=== PATIENT | female | born 2000 | race Caucasian/White ===

== ENCOUNTER 2018-07-29 22:51 | Emergency (ER) | payer BC ==
[2018-07-29] MEDS ORDERED: diphenhydrAMINE 50 MG/ML SDV IM ONE (23:11)
[2018-07-29] MEDS ORDERED: Ondansetron 4 MG/2 ML SDV IM ONE (23:11)
--- NOTE | 2018-07-29 23:20 | EDM.PDOC ---
ED HPI GENERAL MEDICAL PROBLEM - General Chief Complaint: Headache Stated Complaint: migraine Time Seen by Provider: 07/29/18 23:11 Source of Information: Reports: Patient History Limitations: Reports: No Limitations - History of Present Illness INITIAL COMMENTS - FREE TEXT/NARRATIVE: Patient complains of left sided throbbing migraine headache since 7 pm this evening with nausea. She has had migraine headaches in the past. She denies worsening with sound or light. She last had a migraine in March of this year on the right side. Did take 800 mg of ibuprofen before coming in which she does state usually is enough, but not tonight. No neurologic deficits or changes. No recent illnesses, no throat pain, chest pain, or SOB. Normal voiding and bowel habits. Is a smoker. Onset: Today, Sudden Onset Time: 19:00 Duration: Getting Worse Location: Reports: Head (left side) Severity: Moderate Improves with: Reports: None Worsens with: Reports: None Associated Symptoms: Reports: No Other Symptoms Headache Pain Score (Numeric/FACES): 8 - Related Data Allergies Allergy/AdvReac Type Severity Reaction Status Date / Time No Known Allergies Allergy Verified 07/29/18 22:58 Home Meds: Home Meds Amitriptyline HCl 75 mg PO DAILY 07/29/18 [History] Control Pills 1 tab PO ASDIRECTED 07/29/18 [History] Calcium Carbonate [Calcium] 500 mg PO BID 07/29/18 [History] Multivitamin with Minerals [Hair, Skin & Nails] 1 each PO TID 07/29/18 [History] Sertraline [Zoloft] 25 mg PO DAILY 07/29/18 [History] hydrOXYzine HCl [Atarax] 25 mg PO BEDTIME 07/29/18 [History] Past Medical History Neurological History: Reports: Migraines Psychiatric History: Reports: Anxiety, Depression - Past Surgical History HEENT Surgical History: Reports: Oral Surgery Social & Family History - Tobacco Use Smoking Status *Q: Current Every Day Smoker Years of Tobacco use: 2 Packs/Tins Daily: 0.4 ED ROS GENERAL - Review of Systems Review Of Systems: See Below Constitutional: Reports: No Symptoms HEENT: Reports: No Symptoms Respiratory: Reports: No Symptoms Cardiovascular: Reports: No Symptoms Endocrine: Reports: No Symptoms GI/Abdominal: Reports: No Symptoms : Reports: No Symptoms Musculoskeletal: Reports: No Symptoms Skin: Reports: No Symptoms Neurological: Reports: Headache (left side frontal to posterior occiput, described as throbbing) Psychiatric: Reports: No Symptoms Hematologic/Lymphatic: Reports: No Symptoms Immunologic: Reports: No Symptoms - Physical Exam Exam: See Below Exam Limited By: No Limitations General Appearance: Alert, WD/WN, Mild Distress Eye Exam: Bilateral Eye: EOMI, Normal Inspection, PERRL Ears: Normal TMs Nose: Normal Inspection, Normal Mucosa, No Blood Throat/Mouth: Normal Inspection, Normal Lips, Normal Teeth, Normal Gums, Normal Oropharynx, Normal Voice, No Airway Compromise Head Exam: Atraumatic, Normocephalic Neck: Normal Inspection, Supple, Non-Tender, Full Range of Motion Respiratory/Chest: No Respiratory Distress, Lungs Clear, Normal Breath Sounds, No Accessory Muscle Use, Chest Non-Tender Cardiovascular: Normal Peripheral Pulses, Regular Rate, Rhythm, No Edema, No Gallop, No JVD, No Murmur, No Rub GI/Abdominal: Normal Bowel Sounds, Soft, Non-Tender, No Organomegaly, No Distention, No Abnormal Bruit, No Mass Neuro Exam (Abbreviated): Alert, Oriented, CN II-XII Intact, Normal Cognition, Normal Gait, Normal Reflexes, No Motor/Sensory Deficits Psychiatric: Normal Affect, Normal Mood Course - Vital Signs Last Recorded V/S: Last Vital Signs Temp 36.3 C 07/29/18 23:01 Pulse 105 H 07/29/18 23:01 Resp 18 07/29/18 23:01 BP 151/90 H 07/29/18 23:01 Pulse Ox 95 07/29/18 23:01 - Orders/Labs/Meds Meds: Medications Discontinued Medications Generic Name Dose Route Start Last Admin Trade Name Alekq PRN Reason Stop Dose Admin Chlorpromazine HCl 25 mg 07/29/18 23:13 07/29/18 23:26 Thorazine IM 07/29/18 23:14 25 mg ONETIME ONE Administration Diphenhydramine HCl 50 mg 07/29/18 23:11 07/29/18 23:26 Benadryl IM 07/29/18 23:12 50 mg ONETIME ONE Administration Ondansetron HCl 4 mg 07/29/18 23:11 07/29/18 23:26 Zofran IM 07/29/18 23:12 4 mg ONETIME ONE Administration Departure - Departure Time of Disposition: 23:42 Disposition: Home, Self-Care 01 Condition: Good Clinical Impression: Migraine - Discharge Information *PRESCRIPTION DRUG MONITORING PROGRAM REVIEWED*: No *COPY OF PRESCRIPTION DRUG MONITORING REPORT IN PATIENT ZOFIA: No Instructions: Recurrent Migraine Headache, [id number] Referrals: PCP,None [Primary Care Provider] - Forms: ED Department Discharge Additional Instructions: Stay well hydrated. I also recommend keeping a diary to discover any triggers other than vape smoke that could be the cause of this repeat migraine headache. Triggers can include but are not limited to excess stress, caffeine, smoke, alcohol, drugs, dehydration. Please follow up with your primary doctor if you continue to have recurrent migraine headaches, or if you have any neurologic deficits. Please call the hospital if you have any further questions or concerns. - Problem List & Annotations (1) Migraine SNOMED Code(s): 95533861 Code(s): G43.909 - MIGRAINE, UNSP, NOT INTRACTABLE, WITHOUT STATUS MIGRAINOSUS Status: Acute Priority: Low - Problem List Review Problem List Initiated/Reviewed/Updated: Yes - Assessment/Plan Assessment:: migraine without aura Plan: Stay well hydrated. I also recommend keeping a diary to discover any triggers other than vape smoke that could be the cause of this repeat migraine headache. Triggers can include but are not limited to excess stress, caffeine, smoke, alcohol, drugs, dehydration. Please follow up with your primary doctor if you continue to have recurrent migraine headaches, or if you have any neurologic deficits. Please call the hospital if you have any further questions or concerns.
== END 2018-07-29 23:42 | disposition home or self-care (01) ==
LOC: VM.ED 22:51
DX: G43.909 Migraine, unspecified, not intractable, without status migrainosus (principal); F41.9 Anxiety disorder, unspecified; F32.9 Major depressive disorder, single episode, unspecified; F17.210 Nicotine dependence, cigarettes, uncomplicated; Z79.899 Other long term (current) drug therapy
CPT/HCPCS: 96372; 99283; J1200; J2405; J3230

== ENCOUNTER 2019-04-09 22:14 | Emergency (ER) | payer OTHER, BC ==
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
--- NOTE | 2019-04-10 07:51 | CR ---
[id number] RAD/RAD Knee Right 3V Exam: RAD Knee Right 3V Indication:INJURED KNEE Comparison: No prior imaging for comparison. Discussion: Patella view demonstrates mild narrowing of the lateral facet joint space, nonspecific but suggests either sequela of patellar instability versus cartilage thinning. No fracture, dislocation, or joint effusion. Impression: As above. Paul Herndon MD 04/10/19 0750 Thank you for allowing us to participate in the care of your patient.
== END 2019-04-09 23:28 | disposition home or self-care (01) ==
LOC: VM.ED 22:14
DX: S83.91XA Sprain of unspecified site of right knee, initial encounter (principal); F41.9 Anxiety disorder, unspecified; F32.9 Major depressive disorder, single episode, unspecified; F17.210 Nicotine dependence, cigarettes, uncomplicated; Z79.3 Long term (current) use of hormonal contraceptives; Z79.899 Other long term (current) drug therapy; W22.8XXA Striking against or struck by other objects, initial encounter
CPT/HCPCS: 73562-RT; 99283-25; 99283-GF

== ENCOUNTER 2019-06-04 22:18 | Emergency (ER) | payer BC ==
[2019-06-04] MEDS ORDERED: Take Home: Acetaminophen/HYDROcodone 325-10 MG, 5 Tab Pack PO ONE (23:20)
[2019-06-04] MEDS ORDERED: Lidocaine 1% 30 ML SDV INJECT ONE (23:29)
--- NOTE | 2019-06-04 23:37 | EDM.PDOC ---
ED HPI GENERAL MEDICAL PROBLEM - General Stated Complaint: PAIN FROM CYST Time Seen by Provider: 06/04/19 22:18 Source of Information: Reports: Patient History Limitations: Reports: No Limitations - History of Present Illness INITIAL COMMENTS - FREE TEXT/NARRATIVE: Pt. presents to ER with complaints of abscess to L inner thigh. Pt. states that she was seen in clinic for this on Sunday. At the time, there was cellulitis but no abscess formation yet. Pt. was started on Augmentin and told to follow- up. Pt. states that throughout the day yesterday and today, the cellulitis has coalesced into an abscess to L inner thigh near lower labia majora. Pt. denies any fever or chills. No discharge from the area. She states that she has never had a lesion like this in the past. Denies any history of MRSA. Onset: Today Onset Date: 06/04/19 Location: Reports: Lower Extremity, Left Quality: Reports: Pressure, Throbbing Severity: Severe Worsens with: Reports: Movement - Related Data Allergies Allergy/AdvReac Type Severity Reaction Status Date / Time No Known Allergies Allergy Verified 04/09/19 22:20 Home Meds: Home Meds Control Pills 1 tab PO ASDIRECTED 07/29/18 [History] Calcium Carbonate [Calcium] 500 mg PO BID 07/29/18 [History] Multivitamin with Minerals [Hair, Skin & Nails] 1 each PO TID 07/29/18 [History] Sertraline [Zoloft] 25 mg PO DAILY 07/29/18 [History] hydrOXYzine HCl [Atarax] 25 mg PO BEDTIME 07/29/18 [History] Citalopram Hydrobromide [Celexa] 40 mg PO DAILY 04/09/19 [History] Past Medical History Neurological History: Reports: Migraines Psychiatric History: Reports: Anxiety, Depression - Past Surgical History HEENT Surgical History: Reports: Oral Surgery Musculoskeletal Surgical History: Reports: Arthroscopic Knee ED ROS GENERAL - Review of Systems Review Of Systems: See Below Constitutional: Reports: No Symptoms HEENT: Reports: No Symptoms Respiratory: Reports: No Symptoms Cardiovascular: Reports: No Symptoms Endocrine: Reports: No Symptoms GI/Abdominal: Reports: No Symptoms : Reports: No Symptoms Musculoskeletal: Reports: Other (See HPI) Skin: Reports: Lumps (see HPI) Neurological: Reports: No Symptoms Psychiatric: Reports: No Symptoms Hematologic/Lymphatic: Reports: No Symptoms Immunologic: Reports: No Symptoms ED EXAM, GENERAL - Physical Exam Exam: See Below Exam Limited By: No Limitations General Appearance: Alert, WD/WN, No Apparent Distress Extremities: Other (large area of cellulitis with central enlarged, hardened abscess with central discoloration. Abscess measures approx. 4 cm in diameter.) Neurological: Alert, Oriented, CN II-XII Intact, Normal Cognition, Normal Gait, Normal Reflexes, No Motor/Sensory Deficits Psychiatric: Normal Affect, Normal Mood Skin Exam: Increased Warmth, Other (see above) Lymphatic: No Adenopathy ED GENERAL MEDICAL PROCEDURES - Additional/Other Procedure(s) Other (Free Text) Procedure(s): Pt. was placed in lithotomy position on bed with stirrups. The area was cleansed with chlorhexidine. The abscess was prepped and draped in usual sterile fashion. Central portion of the abscess was anesthetized with approx. 4 ml of 1% lidocaine. The abscess was punctured with a #11 blade. Large amount of purulent, foul-smelling, brownish blood tinged material flowed freely from the site. Cultures were obtained. Once the abscess stopped freely draining it was expressed. The exterior incision was increased in size with scalpel and further expressed. The interior of the abscess was bluntly probed to break up what appeared to be septate regions of the abscess. Further material was expressed, as well as several large blood clots. Pt. reported a near instantaneous improvement in discomfort and pressure. The abscess was packed with 1/4 in packing ribbon. Course - Orders/Labs/Meds Orders: Active Orders 24 hr Category Date Time Status CULTURE WOUND [RM] Stat Lab 06/04/19 23:31 Ordered Meds: Medications Discontinued Medications Generic Name Dose Route Start Last Admin Trade Name Freq PRN Reason Stop Dose Admin Hydrocodone Bitart/Acetaminophen 1 packet 06/04/19 23:20 Take Home: Acetaminophen/Hydrocodone 325-10mg PO 06/04/19 23:21 ONETIME ONE Lidocaine HCl 30 ml 06/04/19 23:29 Xylocaine-Mpf 1% INJECT 06/04/19 23:30 ONETIME ONE Departure - Departure Time of Disposition: 23:40 Disposition: Home, Self-Care 01 Clinical Impression: Abscess - Discharge Information Instructions: Skin Abscess Referrals: Angelo Mckeon MD [Primary Care Provider] - Additional Instructions: Continue with the Augmentin at current dosage. Will will let you know if your antibiotic needs to be changed. Ibuprofen 200mg 3 tabs every 6 hours as needed for pain Byron 10/325mg 1 tablet every 4-6 hours as needed for pain Follow-up in clinic tomorrow. The abscess will need to be repacked tomorrow. I was able to express between 20-30 ml of material from the abscess, but it is a complex cyst. 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 - My Orders Last 24 Hours: My Active Orders 06/04/19 23:31 CULTURE WOUND [RM] Stat - Assessment/Plan Last 24 Hours: My Active Orders 06/04/19 23:31 CULTURE WOUND [RM] Stat Plan: Continue with the Augmentin at current dosage. Will will let you know if your antibiotic needs to be changed. Ibuprofen 200mg 3 tabs every 6 hours as needed for pain Byron 10/325mg 1 tablet every 4-6 hours as needed for pain Follow-up in clinic tomorrow. The abscess will need to be repacked tomorrow. I was able to express between 20-30 ml of material from the abscess, but it is a complex cyst. 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
== END 2019-06-04 23:34 | disposition home or self-care (01) ==
LOC: VM.ED 22:18
DX: L02.416 Cutaneous abscess of left lower limb (principal); F41.9 Anxiety disorder, unspecified; F32.9 Major depressive disorder, single episode, unspecified; Z79.3 Long term (current) use of hormonal contraceptives; Z79.899 Other long term (current) drug therapy
CPT/HCPCS: 10061; 87070; 87077; 99283; A9270; J2001

== ENCOUNTER 2019-12-10 22:58 | Emergency (ER) | payer OTHER, BC ==
[2019-12-10] MEDS ORDERED: Ketorolac 30 MG/ML SDV IM ONE (23:55)
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
== END 2019-12-11 00:40 | disposition home or self-care (01) ==
LOC: VM.ED 22:58
DX: S63.501A Unspecified sprain of right wrist, initial encounter (principal); S29.012A Strain of muscle and tendon of back wall of thorax, initial encounter; F41.9 Anxiety disorder, unspecified; F32.9 Major depressive disorder, single episode, unspecified; Z79.899 Other long term (current) drug therapy; V53.5XXA Driver of pick-up truck or van injured in collision with car, pick-up truck or van in traffic accident, initial encounter
CPT/HCPCS: 71046; 73110-RT; 90471; 99284-25; J1885